=== PATIENT | female | born 1970 | race Two or more races ===

== ENCOUNTER → 2025-04-03 | Emergency (ER) | payer OTHER ==
[~2025-04-03] VITALS: Ht 167.6 cm; Wt 96.2 kg
[~2025-04-03] MED LIST: 0.9 % SODIUM CHLORIDE 1,000 ML IV STA; AMLODIPINE BESY10 MG PO; COZAAR100 MG PO; FAMOTIDINE/PF 20 MG/2 ML VIAL IV PUSH STA; FAMOTIDINE/PF 20 MG/2 ML VIAL ONE; FAMOtidine 10 MG/ML (4ML VIAL) IV PUSH STA; FUROSEMIDE20 MG PO; HUMALOG100 UNIT/1; HYOSCYAMINE SULFATE 0.125 MG TAB.SUBL SL ONE; JANUMET 50-1,01 EACH PO; KETOROLAC TROMETHAMINE 30 MG VIAL IV STA; LANTUS SOL100 UNIT/1 SQ; LEVOTHYROXINE175 MCG PO; LOPRESSOR25 MG; MORPHINE SULFATE 4 MG/ML VIAL IV STA; NIFE60TA3 PO; ONDANSETRON HCL 2 MG/ML VIAL IV STA; ONDANSETRON HCL 2 MG/ML VIAL ONE; POTASSIUM BICARBONATE/CIT AC 25 MEQ TABLET.EFF PO ONE; PROMETHAZINE HCL 50 MG/ML AMPUL IM ONE; PROMETHAZINE HCL 50 MG/ML AMPUL IM STA; SPIRONOLACTONE25 MG PO
[2025-04-04 00:11] LABS: BASO % 0.5 % (0.1-1.2); EOS # 0.08 (0.04-0.54); EOS % 1.3 % (0.7-7.0); HEMATOCRIT 37.9 % (34.1-44.9); HEMOGLOBIN 12.4 g/dL (11.2-15.7); LYMPH % 36.3 % (19.3-53.1); MEAN CORPUSCULAR HEMOGLOBIN 24.9 pg (25.6-32.2); MONO # 0.55 (0.24-0.82); MONO % 8.7 % (4.7-12.5); NEUT # 3.36 (1.56-6.13); NEUT % 52.9 % (34.0-71.1); PLATELET COUNT 268 K/uL (163-369); RED BLOOD COUNT 4.98 M/uL (3.93-5.22); RED CELL DISTRIBUTION WIDTH 14.6 % (11.6-14.4)
[2025-04-04 00:37] LABS: INR 1.02; PARTIAL THROMBOPLASTIN TIME 24.8 SECONDS (22.0-34.0); PROTHROMBIN TIME 11.1 SECONDS (9.0-11.5)
[2025-04-04 00:42] LABS: ALBUMIN 3.2 gm/dL (3.4-5.0); BILIRUBIN TOTAL 0.43 mg/dL (0.3-1.2); CALCIUM 8.7 mg/dL (8.5-10.1); CREATININE SERUM 0.78 mg/dL (0.55-1.02); GFR 76.96; GLOBULINA 4.4 G/DL (2.4-3.5); POTASSIUM 3.37 mEq/L (3.5-5.1); TOTAL PROTEIN 7.6 gm/dL (6.4-8.2)
[2025-04-04 04:25] LABS: PH,URINE 7.5 (5.0-8.0); URINE APPEARANCE Clear; URINE BILIRRUBIN Negative (NEGATIVE); URINE BLOOD Negative; URINE COLOR Yellow; URINE KETONE Negative (NEGATIVE); URINE LEUKOCYTE Negative; URINE NITRATE Negative; URINE PROTEIN Negative (NEGATIVE); URINE UROBILINOGEN 0.2 E.U./dl
[2025-04-04 04:30] LABS: URINE BACTERIA 86.7 uL (0.0-1933); URINE EPITHELIAL CELLS 10.1 uL (0.0-38.8); URINE WBC 2.8 uL (0.0-23.2)
[2025-04-04 04:35] LABS: URINE GLUCOSE 100 MG/DL (NEGATIVE)
== END | disposition home or self-care (01) ==
LOC: ER 19:49
DX: R10.84 Generalized abdominal pain (principal); K62.89 Other specified diseases of anus and rectum; G89.29 Other chronic pain; N21.0 Calculus in bladder; E11.9 Type 2 diabetes mellitus without complications; Z79.4 Long term (current) use of insulin; Z79.84 Long term (current) use of oral hypoglycemic drugs; I10 Essential (primary) hypertension; Z88.8 Allergy status to other drugs, medicaments and biological substances
CPT/HCPCS: 36415; 74176; 96365; 96366; 96372; 99284; J1885; J2250; J2270; J2405 ×2; J3490